=== PATIENT | female | born 2000 | race Caucasian/White ===

== ENCOUNTER 2022-03-07 21:16 | Emergency (ER) | payer OTHER ==
[2022-03-07] MEDS ORDERED: Boostrix 0.5 ML (Tdap) VIAL (>/=7 yrs of age) ONE (22:39)
== END 2022-03-07 22:55 | disposition home or self-care (01) ==
LOC: CSHERS 21:16
DX: S01.81XA Laceration without foreign body of other part of head, initial encounter (principal); X58.XXXA Exposure to other specified factors, initial encounter
CPT/HCPCS: 12011; 87480; 87510; 87660; 90471; 90715